=== PATIENT | male | born 1990 | race Caucasian/White ===

== ENCOUNTER 2024-02-03 03:13 | Emergency (ER) | payer BC ==
[~2024-02-03] VITALS: Ht 182.9 cm; Wt 103.4 kg
[2024-02-03] MEDS ORDERED: ACETAMINOPHEN 325 MG TAB ONE (03:30)
[2024-02-03] MEDS ORDERED: ONDANSETRON HCL INJ 2MG/ML 2ML 2 MG/ML VIAL ONE (03:30)
[2024-02-03] MEDS ORDERED: SODIUM CHLORIDE 0.9% 1000ML 1,000 ML ONE (03:31)
[2024-02-03] MEDS: SODIUM CHLORIDE 0.9% 1000ML 1,000 ML IV ONE (03:38)
[2024-02-03] MEDS: ACETAMINOPHEN 325 MG TAB PO ONE (03:38)
[2024-02-03] MEDS: ONDANSETRON HCL INJ 2MG/ML 2ML 2 MG/ML VIAL IV STA (03:40)
[2024-02-03 04:09] LABS: BASOPHILS % 0.1 % (0.0-1.0); EOSINOPHILS % 0.4 % (0.0-6.0); HEMATOCRIT 39.6 % (38.2-49.6); LYMPHOCYTES # (AUTO) 0.5 (1.0-3.2); LYMPHOCYTES % 6.9 % (18.0-39.1); MEAN CORPUSCULAR HGB CONC 35.4 g/dL (31-35); MEAN CORPUSCULAR VOLUME 93.4 fL (81-99); MONOCYTES # (AUTO) 0.2 (0.2-0.8); MONOCYTES % 3.2 % (4.4-11.3); NEUTROPHILS # (AUTO) 6.7 (2.1-6.9); PLATELET COUNT 191 x10e3/uL (140-360); RED BLOOD COUNT 4.24 x10e6/uL (4.3-5.7); RED CELL DISTRIBUTION WIDTH 12.7 % (11.7-14.4); WHITE BLOOD COUNT 7.49 x10e3/uL (4.8-10.8)
[2024-02-03 04:23] LABS: ALBUMIN 4.3 g/dL (3.5-5.0); ALBUMIN/GLOBULIN RATIO 1.5 (0.8-2.0); ANION GAP 17.5 mmol/L (8-16); BILIRUBIN,TOTAL 0.9 mg/dL (0.2-1.2); CREATININE, SERUM 0.91 mg/dL (0.72-1.25); POTASSIUM 3.5 mmol/L (3.5-5.1); TOTAL PROTEIN 7.2 g/dL (6.5-8.1)
[2024-02-03 04:44] VITALS: PULSE 87; RESP 20; TEMP 100
[2024-02-03] MEDS ORDERED: ONDANSETRON ODT4 MG SL (04:51)
[2024-02-03 05:06] VITALS: BP 114/65; PULSE 87; RESP 20; TEMP 100; O2SAT 98
== END 2024-02-03 05:08 | disposition home or self-care (01) ==
LOC: ER 03:15
DX: R50.9 Fever, unspecified (principal); B34.9 Viral infection, unspecified; R11.2 Nausea with vomiting, unspecified; R51.9 Headache, unspecified; Z11.52 Encounter for screening for COVID-19
CPT/HCPCS: 36415; 80053; 85025; 87400; 99284; J2405; J2470; J7030; U0002